=== PATIENT | male | born 1955 | race Caucasian/White ===

== ENCOUNTER 2021-06-07 07:46 | Day surgery (SDC) | payer MEDICARE ==
[~2021-06-07 07:46] MED LIST: Lidocaine 1%/Sod Bicarbonate in NS 8.4% 1 ML Syringe IDERM PRN; Sodium Chloride 0.9% 10 ML Syringe FLUSH PRN
[2021-06-07] MEDS: Lactated Ringers 1,000 ML IV SCH ×2 (08:17→11:07)
--- NOTE | 2021-06-07 09:42 | PCM.PREANE ---
Preanesthetic Assessment - Anesthesia/Transfusion/Family Hx Anesthesia History: Prior Anesthesia Without Reaction Family History of Anesthesia Reaction: No Transfusion History: No Prior Transfusion(s) Intubation History: Unknown - Review of Systems General: No Symptoms Pulmonary: No Symptoms Cardiovascular: No Symptoms Gastrointestinal: No Symptoms Neurological: No Symptoms Other: Reports: None - Physical Assessment NPO Status Date: 06/07/21 NPO Status Time: 04:30 Vital Signs: Last Vital Signs Temp 36.9 C 06/07/21 08:05 Pulse 64 06/07/21 08:05 Resp 16 06/07/21 08:05 BP 124/72 06/07/21 08:05 Pulse Ox 100 06/07/21 08:05 Height: 1.78 m Weight: 67.585 kg ASA Class: 1 Mental Status: Alert & Oriented x3 Airway Class: Mallampati = 1 Thyro-Mental Finger Breadths: 3 Mouth Opening Finger Breadths: 3 ROM/Head Extension: Full Lungs: Clear to Auscultation, Normal Respiratory Effort - Allergies Allergies/Adverse Reactions: Allergies Allergy/AdvReac Type Severity Reaction Status Date / Time gluten AdvReac Nausea and Verified 06/07/21 09:12 Vomiting - Acknowledgements Anesthesia Type Planned: MAC Pt an Appropriate Candidate for the Planned Anesthesia: Yes Alternatives and Risks of Anesthesia Discussed w Pt/Guardian: Yes Pt/Guardian Understands and Agrees with Anesthesia Plan: Yes PreAnesthesia Questionnaire HEENT History: Reports: None Cardiovascular History: Reports: Other (See Below) Other Cardiovascular History: sinus bradycardia Respiratory History: Reports: None Gastrointestinal History: Reports: Celiac Disease Genitourinary History: Reports: None 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 Musculoskeletal History: Reports: Osteoarthritis Neurological History: Reports: None Psychiatric History: Reports: None Endocrine/Metabolic History: Reports: None Hematologic History: Reports: None Immunologic History: Reports: None Oncologic (Cancer) History: Reports: None Dermatologic History: Reports: None - Infectious Disease History Infectious Disease History: Reports: None - Past Surgical History Head Surgeries/Procedures: Reports: None HEENT Surgical History: Reports: None Cardiovascular Surgical History: Reports: None Respiratory Surgical History: Reports: None GI Surgical History: Reports: Appendectomy, Colonoscopy, Hernia Repair/Other Female Surgical History: Reports: None Male Surgical History: Reports: None Endocrine Surgical History: Reports: None Neurological Surgical History: Reports: None Musculoskeletal Surgical History: Reports: None Oncologic Surgical History: Reports: None Dermatological Surgical History: Reports: None - SUBSTANCE USE Tobacco Use Status *Q: Never Tobacco User Recreational Drug Use History: No - HOME MEDS Home Medications: Home Meds Ascorbic Acid [Vitamin C] 1,000 mg PO DAILY 06/06/21 [History] Calcium Citrate/Vitamin D3 [Calcium Cit 315 mg-D3 250 Unit] 1 tab PO DAILY 06/06/21 [History] Cholecalciferol (Vitamin D3) [Vitamin D3] 50 mcg PO DAILY 06/06/21 [History] Flaxseed Oil [Flax Oil] 1,000 mg PO DAILY 06/06/21 [History] - CURRENT (IN HOUSE) MEDS Current Meds: Current Medications Lactated Ringer's (Ringers, Lactated) 1,000 mls @ 125 mls/hr IV ASDIRECTED MARIA A Stop: 06/07/21 23:00 Last Admin: 06/07/21 08:17 Dose: 125 mls/hr Documented by: Lidocaine/Sodium Bicarbonate (Lidocaine 1%/Sod Bicarbonate In Ns 8.4% 1 Ml Syringe) 0.25 ml IDERM ONETIME PRN PRN Reason: Prior to IV Start Stop: 06/07/21 18:00 Last Admin: 06/07/21 08:17 Dose: 0.25 ml Documented by: Sodium Chloride (Sodium Chloride 0.9% 10 Ml Syringe) 10 ml FLUSH ASDIRECTED PRN PRN Reason: Keep Vein Open Stop: 06/07/21 18:00
[2021-06-07] MEDS ORDERED: Propofol 200 MG/20 ML SDV ONE ×3 (09:49→10:18)
[2021-06-07] MEDS ORDERED: Lidocaine 1% 4 ML ONE (09:49)
--- NOTE | 2021-06-07 10:52 | PCM48HPAN ---
Post Anesthesia Note - EVALUATION WITHIN 48HRS OF ANESTHETIC Vital Signs in Normal Range: Yes Patient Participated in Evaluation: Yes Respiratory Function Stable: Yes Airway Patent: Yes Cardiovascular Function Stable: Yes Hydration Status Stable: Yes Pain Control Satisfactory: Yes Nausea and Vomiting Control Satisfactory: Yes Mental Status Recovered: Yes Vital Signs: Last Vital Signs Temp 36.9 C 06/07/21 08:05 Pulse 64 06/07/21 08:05 Resp 16 06/07/21 08:05 BP 124/72 06/07/21 08:05 Pulse Ox 100 06/07/21 08:05
--- NOTE | 2021-06-07 10:52 | PCM.PRNOTE ---
- Free Text/Narrative Note: Date: 06/07/2021 Procedure: screening colonoscopy History: average risk for colon cancer, normal screening colonoscopy 12 years ago Endoscopist: Phu Souza MD Findings: excellent prep. appendiceal stump and ileocecal valve visualized. Three medium-size polyps identified and removed using hot snare; one within ascending colon, one at hepatic flexure, and one within distal rectum. Internal hemorrhoids. Detailed Report: The patient was taken to the endoscopy suite and placed in left lateral decubitus position. Timeout was performed and monitored anesthesia care was initiated. The anus appeared normal. On digital rectal exam, the prostate felt enlarged but otherwise exam was unremarkable. The colonoscope was inserted and advanced all the way to the cecum. The prep was excellent. The appendiceal stump was visualized as well as the ileocecal valve. The scope was slowly withdrawn and mucosal surfaces carefully inspected. A small sessile polyp was identified at about the level of the mid ascending colon. This was removed in its entirety with hot snare. The specimen was successfully retrieved. Proximal to this at the level of the hepatic flexure was a larger polyp about 1 cm in size. This also was removed using hot snare polypectomy technique and the specimen was successfully retrieved. No other pathology was noted until the scope was withdrawn to the distal rectum. A sessile lobulated polyp was identified approximately 1 cm in span. This was removed with a hot snare and specimen was successfully retrieved. No diverticulosis was noted. On retroflexion within the rectum internal hemorrhoids were appreciated. Air was suctioned from the distal colon and rectum prior to withdrawal of the scope. The patient tolerated the procedure well.
== END 2021-06-07 11:26 | disposition home or self-care (01) ==
LOC: JD.SDS 07:46
PROVIDERS: ATTEND Surgery
DX: Z12.11 Encounter for screening for malignant neoplasm of colon (principal); D12.2 Benign neoplasm of ascending colon; K62.1 Rectal polyp; K51.40 Inflammatory polyps of colon without complications; K64.8 Other hemorrhoids; Z88.8 Allergy status to other drugs, medicaments and biological substances; Z79.899 Other long term (current) drug therapy; Z98.890 Other specified postprocedural states
CPT/HCPCS: 45385; 88305; J2704; J7120; 00812

== ENCOUNTER 2022-07-11 10:54 | Emergency (ER) | payer MEDICARE ==
[2022-07-11] MEDS ORDERED: Sodium Chloride 0.9% 10 ML Syringe FLUSH PRN (11:06)
[2022-07-11] MEDS ORDERED: Sodium Chloride 0.9% 1,000 ML IV STA (11:14)
[2022-07-11] MEDS ORDERED: Ondansetron 4 MG/2 ML SDV IVPUSH ONE (11:14)
[2022-07-11] MEDS ORDERED: HYDROmorphone 0.5 MG/0.5 ML Syringe IVPUSH ONE (11:14)
[2022-07-11 11:53] LABS: ESTIMATED GFR 74 mL/min (>60)
[2022-07-11] MEDS ORDERED: Tamsulosin 0.4 MG Cap.ER PO ONE (12:08)
[2022-07-11] MEDS ORDERED: Ketorolac 30 MG/ML SDV IVPUSH ONE (12:08)
== END 2022-07-11 13:53 | disposition home or self-care (01) ==
LOC: JD.ED 10:54
DX: N20.0 Calculus of kidney (principal); Z91.018 Allergy to other foods; Z79.899 Other long term (current) drug therapy; Z90.49 Acquired absence of other specified parts of digestive tract
CPT/HCPCS: 36415; 74176; 80053; 81001; 85025; 86140; 96361; 96374; 96375; 99284; A9270; J1170; J1885; J2405; J3490; J7030